=== PATIENT | female | born 1955 | race Caucasian/White ===

== ENCOUNTER 2020-07-10 14:19 | Outpatient (CLI) | payer MEDICARE, SELFPAY ==
--- NOTE | ~2020-07-10 | MM_ITS ---
EXAMINATION: MM screening [facility] BI w jose luis HISTORY: Screening mammogram TECHNIQUE: Craniocaudal and mediolateral oblique 3-D tomosynthesis images were obtained and synthetic 2-D images were generated. CAD analysis was submitted and interpreted. COMPARISON: 07/15/2018, 01/03/2016, 12/27/2014 BREAST PARENCHYMAL COMPOSITION: There are scattered areas of fibroglandular density. 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 There is no evidence of suspic ious mass, calcification, or architectural distortion to suggest malignancy in either breast. There h as been no suspicious interval change. IMPRESSION: 1. No mammographic evidence of malignancy. 2. Recommend routine screening mammography in one year. BI-RADS Category 2: Benign finding(s). Reviewed, dictated and finalized at location A. [employer]
== END 2020-07-10 14:20 | disposition home or self-care (01) ==
PROVIDERS: PCP Physician Assistant; Visit Provider Obstetrics & Gynecology
DX: Z12.31 Encounter for screening mammogram for malignant neoplasm of breast (principal)
CPT/HCPCS: 77063; 77067

== ENCOUNTER 2021-07-24 15:58 | Outpatient (CLI) | payer MEDICARE, SELFPAY ==
--- NOTE | ~2021-07-24 | MM_ITS ---
EXAMINATION: MM screening [facility] BI w jose luis HISTORY: Screening TECHNIQUE: Craniocaudal and mediolateral oblique 3-D tomosynthesis images were obtained and synthetic 2-D images were generated. CAD analysis was submitted and interpreted. COMPARISON: Comparison to multiple prior studies sequentially, with oldest reviewed study dated 09/18. BREAST PARENCHYMAL COMPOSITION: The breasts are heterogeneously dense, which may obscure small masses . FINDINGS: There is no evidence of suspicious mass, calcification, or architectural distortion to sugg est malignancy in either breast. There has been no suspicious interval change. IMPRESSION: 1. No mammographic evidence of malignancy. 2. Recommend routine screening mammography in one year. BI-RADS Category 1: Negative Reviewed, dictated and finalized at location A. ER [employer]
== END 2021-07-24 15:59 | disposition home or self-care (01) ==
PROVIDERS: PCP Family Medicine; Visit Provider Obstetrics & Gynecology
DX: Z12.31 Encounter for screening mammogram for malignant neoplasm of breast (principal)
CPT/HCPCS: 77063; 77067

== ENCOUNTER 2023-02-07 07:50 | Outpatient (CLI) | payer MEDICARE, SELFPAY | END 2023-02-07 07:51 | disposition home or self-care (01) | LOC: ANHAUDASC 07:50 | PROVIDERS: PCP Family Medicine; Visit Provider Otolaryngology | DX: H93.11 Tinnitus, right ear (principal); H90.3 Sensorineural hearing loss, bilateral | CPT/HCPCS: 92557; 92567 ==

== ENCOUNTER 2023-02-21 09:15 | Outpatient (CLI) | payer MEDICARE, SELFPAY ==
--- NOTE | ~2023-02-21 | XR_ITS ---
Supine view of the abdomen Clinical history: Abdominal pain Findings: Bowel gas pattern is nonspecific. No evidence for obstruction or free air. Cholecystectomy clips are present. No abnormal mass lesion or calcification is seen. Osseous structures are intact. Impression: No significant abnormality is seen. Reviewed, dictated and finalized at [facility]. Impression: No significant abnormality is seen.
== END 2023-02-21 09:16 | disposition home or self-care (01) ==
LOC: ANHIMG 09:20
PROVIDERS: PCP Family Medicine; Visit Provider Physician Assistant
DX: R10.9 Unspecified abdominal pain (principal); R31.9 Hematuria, unspecified
CPT/HCPCS: 74018

== ENCOUNTER 2023-02-27 08:45 | Outpatient (CLI) | payer MEDICARE, SELFPAY ==
--- NOTE | ~2023-02-27 | CT_ITS ---
CT of the Abdomen and Pelvis: Indication: Abdominal pain, foreign body in colon Technique: 2.5 mm axial scans were obtained through the abdomen and pelvis following intravenous adm inistration of 100 cc of Omnipaque 350. Dose reduction technique was used on this scan by utilizing a utomated exposure control and iterative reconstruction technique. The dose-length product (DLP) was 2 20.73 mGy-cm. COMPARISON: 05/15/2015 Findings: Scans through the lung bases are unremarkable. The liver, spleen, pancreas, and left kidney are within normal limits. Stable small hypodense mass at the right lower renal pole. Probable bilateral adrenal nodules are present, similar to prior exam, l eft larger than right. Stable dilatation of common bile duct, probably related to prior cholecystecto my. There are atherosclerotic calcifications of the aorta. No lymphadenopathy. No bowel obstruction or bowel wall thickening. Possible 15 mm linear radio dense foreign body which a ppears to be possibly in the wall of the small bowel (sagittal image 40, axial image 102). No abscess or free air evident. Images through the pelvis were performed. Urinary bladder unremarkable. No adnexal mass evident. No a scites. Impression: Possible subtle 15 mm linear radiodense foreign body which may be in the wall of the small bowel, as detailed above. No abscess or free air. No bowel obstruction. Bilateral adrenal nodules and small right lower pole renal mass are similar to prior exam. Stability over this time interval this is consistent with benignity. Reviewed, dictated and finalized at [facility]. Impression: Possible subtle 15 mm linear radiodense foreign body which may be in the wall o f the small bowel, as detailed above. No abscess or free air. No bowel obstruct ion. Bilateral adrenal nodules and small right lower pole renal mass are similar to prior exam. Stability over this time interval this is consistent with benignity .
[2023-02-27 09:11] LABS: Estimated Glomerular Filt Rate > 60
== END 2023-02-27 08:46 | disposition home or self-care (01) ==
PROVIDERS: PCP Family Medicine; Visit Provider Physician Assistant
DX: R10.10 Upper abdominal pain, unspecified (principal); T18.3XXA Foreign body in small intestine, initial encounter; T18.4XXA Foreign body in colon, initial encounter; D35.01 Benign neoplasm of right adrenal gland; D35.02 Benign neoplasm of left adrenal gland
CPT/HCPCS: 74177; Q9967

== ENCOUNTER → 2023-03-04 07:56 | Outpatient (CLI) | payer MEDICARE, SELFPAY ==
--- NOTE | ~2023-03-04 | US_ITS ---
EXAMINATION: US renal BI DATE: 03/04/2023 08:21 INDICATION: Abnormal right renal mass on prior CT . TECHNIQUE: Multiple ultrasound grayscale images of the kidneys were obtained. COMPARISON: CT studies dated 02/27/2023 and 05/25/2015 FINDINGS: The right kidney measures 9.9 x 3.8 x 4.1 cm. The left kidney measures 10.9 x 5.0 x 4.8 cm. The kidne ys demonstrate normal echogenicity. A 1.1 cm complex cystic lesion at the lower pole of the right kid marvin corresponding in location to the lesion seen on prior CT with single internal septation measuring approximately 2 mm in thickness and demonstrating some enhancement on prior CT consistent with a Rod niak 2 lesion. 1.1 cm simple appearing exophytic cyst at the lower pole of the left kidney. There is no hydronephrosis in either kidney. No stones identified. The bladder is normal. IMPRESSION: 1. 1.1 cm Bosniak 2 lesion at the lower pole of the right kidney without significant interval change since CT dated 05/25/2015. Reviewed, dictated and finalized at location L. IMPRESSION: 1. 1.1 cm Bosniak 2 lesion at the lower pole of the right kidney without signi ficant interval change since CT dated 05/25/2015.
== END ==
PROVIDERS: PCP Family Medicine; Visit Provider Physician Assistant
DX: N28.89 Other specified disorders of kidney and ureter (principal)
CPT/HCPCS: 76775

== ENCOUNTER 2023-04-15 03:25 | Day surgery (SDC) | payer MEDICARE, SELFPAY ==
[2023-04-07 11:41] VITALS: BMI 20.2
[2023-04-15 06:18] VITALS: BP 152/92; PULSE 94; RESP 16; TEMP 36.2; O2SAT 98; BMI 18.3
[2023-04-15] MEDS: LACTATED RINGERS 1,000 ML 150 ML IV CONT (06:38)
--- NOTE | 2023-04-15 07:18 | PM.HPGS ---
History of Present Illness History of Present Illness Consent: Risks, benefits, and alternatives have been discussed and questions answered. Patient agrees to proceed with procedure. Chief complaint: hx colon polyps Narrative: Saloni Faustin is a 68 year old female Presents for screening colonoscopy. Patient has current weight appetite bowel movements are normal. She denies abdominal pain. Patient has had no bleeding. Family history noncontributory. Patient had a very small polyp removed from the colon 2014. Histology was unable to be obtained at that time. Patient presents today for neoplasia screening. Review of Systems Review of Systems: Review of systems noncontributory. [facility] Past Medical History Medical History Elevated blood pressure reading in office with diagnosis of hypertension History of vaginal delivery Hypercholesterolemia Low back pain of over 3 months duration Renal cyst [facility] 2, 2022 Smoker Surgical History Surgical History H/O blepharoplasty Hx of cholecystectomy (~08/20/02) [place] teeth removed Family History Family History Father Family history of lung cancer Diabetes mellitus Mother Family history of malignant neoplasm of bone Social History Social History (Updated 02/21/23 @ 08:27 by Samantha Cevallos MA) Smoking packs per day: 0.5 Smoking cigarettes per day: 10.0 Years smoked: 40 Smoking pack-years: 20.00 Smoking status: Former smoker Second hand tobacco smoke exposure: No Alcohol intake: current Alcohol use details: 1 glass wine a week Substance use: never Substance use type: does not use Lack of Transportation: No Lack of Food: Never True Current Housing: I Have Housing Concerned About Future Housing: No Difficulty Paying Gas/Electric Bills: No Difficulty Paying for Meds: No Currently Unemployed: No Education: Bachelor's Degree Difficulty w/ Childcare or Family Care: No Living arrangements: with family Occupation/Education: occupation Gender identity (if verbalized by the patient): Female Sexual Orientation (if Verbalized by the Patient): Straight or Heterosexual Spiritual care concerns: No Agree to blood products: Yes Meds Home Medications and Allergies Home Medications Medication Instructions Recorded Confirmed Type calcium carbonate 600 mg calcium 600 mg PO DAILY 10/05/19 04/15/23 History (1,500 mg) tablet (Calcium) cholecalciferol (vitamin D3) 25 25 mcg PO DAILY 10/05/19 04/15/23 History mcg (1,000 unit) capsule simvastatin 20 mg tablet See Rx Instructions .Route 12/16/22 04/15/23 Rx .COMPLEX #90 tabs Allergies Allergy/AdvReac Type Severity Reaction Status Date / Time Sulfa (Sulfonamide Allergy Unknown Unknown Verified 04/15/23 06:25 Antibiotics) silk suture Allergy Severe Swelling Uncoded 04/15/23 06:25 Vital Signs Vital Signs - 24 hr 04/15/23 06:18 Temperature 97.2 F L Pulse Rate 94 Respiratory Rate 16 Blood Pressure 152/92 H Pulse Oximetry 98 Oxygen Delivery Room Air Exam Narrative: Physical exam reveals patient to be alert. Vital signs stable. HEENT exam is unremarkable. Patient is anicteric. Lungs are clear to auscultation and percussion. Heart is without murmur or extra sounds. Abdomen bowel sounds are present soft nontender with no organomegaly. Digital external rectal exam normal. Assessment and Plan Assessment and plan (1) Colon cancer screening: Code(s): Z12.11 - Encounter for screening for malignant neoplasm of colon Status: Acute Assessment and Plan: Patient presents today for screening colonoscopy. She has a distant history of a diminutive polyp. Further recommendations on follow-up may be given after endoscopy.
--- NOTE | 2023-04-15 07:18 | WPDANESEPPF ---
Anes - Initial Pre Proc Eval Procedure: Operation Date: 04/15/23 07:30 Proposed Procedures p Colonoscopy - James Lafleur MD Date/Time: 04/15/23 07:18 Surgeon: James Lafleur MD Pre Op Diagnosis: hx colon polyps Patient Data Age: 68 Gender: F Height: 1.68 m Weight: 51.5 kg Last Vital Signs Temp 97.2 F L 04/15/23 06:18 Pulse 94 04/15/23 06:18 Resp 16 04/15/23 06:18 BP 152/92 H 04/15/23 06:18 Pulse Ox 98 04/15/23 06:18 O2 Del Method Room Air 04/15/23 06:18 Allergies Allergy/AdvReac Type Severity Reaction Status Date / Time Sulfa (Sulfonamide Allergy Unknown Unknown Verified 04/15/23 06:25 Antibiotics) silk suture Allergy Severe Swelling Uncoded 04/15/23 06:25 Home Medications Medication Instructions Recorded Confirmed Type calcium carbonate 600 mg calcium 600 mg PO DAILY 10/05/19 04/15/23 History (1,500 mg) tablet (Calcium) cholecalciferol (vitamin D3) 25 25 mcg PO DAILY 10/05/19 04/15/23 History mcg (1,000 unit) capsule simvastatin 20 mg tablet See Rx Instructions .Route 12/16/22 04/15/23 Rx .COMPLEX #90 tabs Patient hx anesthesia problems: none Family hx anesthesia problems: none Results Review: All pre-operative results and documents have been reviewed as part of the pre-operative evaluation. [facility] Past Medical History Medical History Elevated blood pressure reading in office with diagnosis of hypertension History of vaginal delivery Hypercholesterolemia Low back pain of over 3 months duration [facility] Smoker Surgical History Surgical History H/O blepharoplasty Hx of cholecystectomy (~08/20/02) [place] teeth removed Family History Family History Father Family history of lung cancer Diabetes mellitus Mother Family history of malignant neoplasm of bone Social History Social History (Updated 02/21/23 @ 08:27 by Samantha Cevallos MA) Smoking packs per day: 0.5 Smoking cigarettes per day: 10.0 Years smoked: 40 Smoking pack-years: 20.00 Smoking status: Former smoker Second hand tobacco smoke exposure: No Alcohol intake: current Alcohol use details: 1 glass wine a week Substance use: never Substance use type: does not use Lack of Transportation: No Lack of Food: Never True Current Housing: I Have Housing Concerned About Future Housing: No Difficulty Paying Gas/Electric Bills: No Difficulty Paying for Meds: No Currently Unemployed: No Education: Bachelor's Degree Difficulty w/ Childcare or Family Care: No Living arrangements: with family Occupation/Education: occupation Gender identity (if verbalized by the patient): Female Sexual Orientation (if Verbalized by the Patient): Straight or Heterosexual Spiritual care concerns: No Agree to blood products: Yes Anes - Eval Final PreProcedure Day of Procedure 04/15/23 07:18 Patient weight: normal Heart: regular rate and rhythm Lungs: clear to auscultation Airway: Mallampati scale class II Neurological: alert and oriented Last oral intake: >/= 8 hours ASA classification: II Emergent: no Anesthetic plan: proceed Anesthesia type and monitoring: general GIVS and standard monitoring Results Review: All pre-operative results and documents have been reviewed as part of the pre-operative evaluation. Informed Consent: The patient's anesthetic plan and its attendant risks and benefits were discussed with the patient/family/POA. Questions were solicited and answers provided to the satisfaction of the patient/family/POA.
[2023-04-15 07:49] VITALS: BP 132/74; PULSE 87; RESP 19; O2SAT 100
[2023-04-15 07:59] VITALS: BP 137/81; PULSE 83; RESP 12; O2SAT 99
[2023-04-15 08:09] VITALS: BP 151/85; PULSE 79; RESP 18; O2SAT 99
== END 2023-04-15 08:17 | disposition home or self-care (01) ==
PROVIDERS: PCP Family Medicine; Visit Provider Internal Medicine Gastroenterology
PROC: 0DJD8ZZ Inspection of Lower Intestinal Tract, Via Natural or Artificial Opening Endoscopic (ICD-10-PCS; CPT 45378; principal; 2023-04-15 07:30)
DX: Z12.11 Encounter for screening for malignant neoplasm of colon (principal); K62.1 Rectal polyp; K64.8 Other hemorrhoids; E78.00 Pure hypercholesterolemia, unspecified; Z87.891 Personal history of nicotine dependence
CPT/HCPCS: 45380; 88305; J2704; J7120

== ENCOUNTER 2023-06-26 09:55 | Outpatient (CLI) | payer MEDICARE, SELFPAY ==
--- NOTE | ~2023-06-26 | MM_ITS ---
EXAMINATION: MM screening [facility] BI w jose luis HISTORY: Screening mammogram TECHNIQUE: Craniocaudal and mediolateral oblique 3-D tomosynthesis images were obtained and synthetic 2-D images were generated. CAD analysis was submitted and interpreted. COMPARISON: 07/24/2021, 07/10/2020, 07/15/2018 BREAST PARENCHYMAL COMPOSITION:There are scattered areas of fibroglandular density. FINDINGS: Possible hamartoma at the upper, outer left subareolar region, unchanged. No suspicious mas s, calcification, or architectural distortion are identified in either breast to suggest malignancy. There has been no suspicious interval change. IMPRESSION: No mammographic evidence of malignancy. Recommend routine screening mammography in one year. BI-RADS Category 2: Benign finding(s). Reviewed, dictated and finalized at location . [employer]
== END 2023-06-26 09:56 | disposition home or self-care (01) ==
LOC: ANHIMG 09:59
PROVIDERS: PCP Family Medicine; Visit Provider Family Medicine
DX: Z12.31 Encounter for screening mammogram for malignant neoplasm of breast (principal)
CPT/HCPCS: 77063; 77067